=== PATIENT | female | born 1965 | race Caucasian/White ===

== ENCOUNTER 2017-10-14 07:14 | Day surgery (SDC) | payer MEDICARE ==
[~2017-10-14] VITALS: Ht 172.7 cm; Wt 134.7 kg
[~2017-10-14 07:14] MED LIST: ACET325 PO; ALBIPROI INH; ALBU90OI INH; ALBU90OI6; ALBU90OI6 INH; ALBU90OI61 INH; ALBUIS INH; AMLO10 PO; AMLO5 PO; AMOCLA500 PO; ANORO ELLIPTA1 EACH; ANORO ELLIPTA1 EACH INH; ASPI325 PO; ASPI81EC PO; AZIT250 PO; AZIT500 PO; BUDE10.22; CHOL10002 PO; CODGUAEL PO; CRUTCH3 USE; DIPATR PO; DOCU100 PO; DOXY100 PO; ERGO50000 PO; FAMO20 PO; FENO145; FENO145 PO; FENO67 PO; FLUSAL2505 INH; FLUT.05NI; FURO80 PO; Fenofibrate134 MG PO; Flonase 0.05% N16 GM; GABA300 PO; GLIM2 PO; GLIP2.5ER PO; GLIP5 PO; GUAI600T33 PO; HYDACE5 PO; HYDACE5325 PO; IBUP400 PO; INSDET100; INSDET100 SC; INSDET100 SQ; INSDET100 SUBQ; INSLI100I SC; INSR10I SUBQ; INSUASPI; INSUASPI SC; INSUASPI SUBQ; LEVEMIR FL100 UNIT/1 SC; LEVO750 PO; LISHYD1012 PO; LISI10 PO; LISI20 PO; LISI5 PO; LOVA20 PO; LOVA40 PO; MELO7.5 PO; METO10 PO; METO25 PO; METO25ER; METO25ER PO; METO50 PO; METOPROLOL PO; MIRT15 PO; MONT10T PO; Mevacor PO; NAPR375 PO; NEOCOLOTSU RIGHTEAR; NORT25; NORT25 PO; Naprosyn500 MG PO; Norco 5-325 Ta1 EACH PO; Novolog Fl100 UNIT/1 SC; Novolog100 UNIT/2; OMEG1CAP30 PO; OMEP20ER PO; ONDA4 PO; OXYACE5T PO; Omeprazole20 M1 PO; PIOG15 PO; PRED10 PO; PRED20 PO; PROCODE120 PO; PROM25 PO; Percocet 7.5-31 EACH PO; Perforomis20 MCG/2 M INH; Prednisone20 MG PO; RXCODGUASY PO; RXTRAM50 PO; Robaxin-750750 MG PO; SUCR1 PO; TEMA7.5 PO; TIOT18 INH; TRADJENTA5 MG PO; TRAM50 PO; Tricor PO; UNKNOWN ANTIBIOTIC PO; Ventolin Soln3 ML INH; Ventolin5 MG/1 ML; Zestril PO; Zithromax250 MG PO; Zofran Odt4 MG SL; [UNRECOGNIZED DRUG - OTHER]
[2017-10-25] MEDS ORDERED: [UNRECOGNIZED DRUG - CODE] PO (13:29)
[2017-10-25] MEDS ORDERED: Novolog Fl100 UNIT/1 INJ (15:08)
[2017-10-25] MEDS ORDERED: LOVA40 PO (15:15)
[2017-10-28] MEDS ORDERED: ATOR40TA PO (13:49)
[2017-10-28] MEDS ORDERED: GUAI600T33 PO (13:51)
[2017-10-28] MEDS ORDERED: ALBU2.5V5 NEB (13:51)
[2017-10-28] MEDS ORDERED: LEVFLO500 PO (13:52)
[2017-10-28] MEDS ORDERED: TRAM50 PO (13:53)
[2017-10-28] MEDS ORDERED: POTA20LUD PO (13:53)
== END 2017-10-14 22:57 | disposition home or self-care (01) ==
LOC: ORSCMMR 07:14 → ORD 10:30 → ORSCMMR 10:30
PROVIDERS: Internal Medicine Gastroenterology
PROC: 0DBM8ZX Excision of Descending Colon, Via Natural or Artificial Opening Endoscopic, Diagnostic (ICD-10-PCS; principal; 2017-10-14 08:30)
PROC: 0DBK8ZX Excision of Ascending Colon, Via Natural or Artificial Opening Endoscopic, Diagnostic (ICD-10-PCS; principal; 2017-10-14 08:30)
PROC: 0DBH8ZX Excision of Cecum, Via Natural or Artificial Opening Endoscopic, Diagnostic (ICD-10-PCS; principal; 2017-10-14 08:30)
PROC: 0DBN8ZX Excision of Sigmoid Colon, Via Natural or Artificial Opening Endoscopic, Diagnostic (ICD-10-PCS; principal; 2017-10-14 08:30)
DX: Z12.11 Encounter for screening for malignant neoplasm of colon (principal); Z86.010 Personal history of colon polyps; D12.0 Benign neoplasm of cecum; D12.2 Benign neoplasm of ascending colon; K63.5 Polyp of colon; K64.8 Other hemorrhoids; E11.9 Type 2 diabetes mellitus without complications; Z79.4 Long term (current) use of insulin; I10 Essential (primary) hypertension; E78.00 Pure hypercholesterolemia, unspecified; E66.01 Morbid (severe) obesity due to excess calories; Z68.42 Body mass index [BMI] 45.0-49.9, adult; Z79.899 Other long term (current) drug therapy; J44.9 Chronic obstructive pulmonary disease, unspecified
CPT/HCPCS: 82947; 88305; J2250; J3010; J7120

== ENCOUNTER 2017-10-17 07:31 | Emergency (ER) | payer MEDICARE ==
[~2017-10-17] VITALS: Ht 172.7 cm; Wt 133.8 kg
[2017-10-17 08:49] LABS: BASOPHILS ABSOLUTE AUTO 0.05 K/mm3 (0.00-0.23); BASOPHILS PERCENT AUTO 1 % (0-2); EOSINOPHILS ABSOLUTE AUTO 0.35 K/mm3 (0.00-0.68); EOSINOPHILS PERCENT AUTO 4 % (0-6); Hematocrit 46.8 % (33.0-51.0); Hemoglobin 13.7 g/dL (11.5-16.0); IMMATURE GRAN ABSOLUTE AUTO 0.04 K/mm3 (0.00-0.10); IMMATURE GRAN PERCENT AUTO 0 % (0-1); LYMPHOCYTES ABSOLUTE AUTO 1.95 K/mm3 (0.84-5.20); LYMPHOCYTES PERCENT AUTO 20 % (21-46); MONOCYTES ABSOLUTE AUTO 0.89 K/mm3 (0.16-1.47); MONOCYTES PERCENT AUTO 9 % (4-13); Mean Corpuscular HGB 24.9 pg (26.0-34.0); Mean Corpuscular HGB Conc 29.3 g/dL (31.5-36.5); Mean Corpuscular Volume 85 fL (80-100); Mean Platelet Volume 9.9 fL (9.1-12.4); NEUTROPHILS ABSOLUTE AUTO 6.46 K/mm3 (1.96-9.15); NEUTROPHILS PERCENT AUTO 66 % (41-73); Platelet Count 284 K/mm3 (150-400); RDW Coefficient Variation 16.9 % (11.7-14.2); RDW Standard Deviation 52.4 fL (35.1-46.3); White Blood Cell Count 9.74 K/mm3 (4.00-11.30)
[2017-10-17 09:05] LABS: Anion Gap 7 mmol/L (6-16); Blood Urea Nitrogen 18 mg/dL (8-24); Bun/Creatinine Ratio 20.3 (12.0-20.0); CO2, Blood 26 mmol/L (21-32); Chloride, Blood 108 mmol/L (98-108); Creatinine, Blood 0.89 mg/dL (0.40-1.00); Glomerular Filtration Rate >60 (60-); Glucose, Blood 113 mg/dL (70-99); Potassium, Blood 4.4 mmol/L (3.5-5.5); Sodium, Blood 141 mmol/L (136-145)
[2017-10-17] MEDS ORDERED: Norco 10-325 T1 EACH PO (10:55)
[2017-10-17] MEDS ORDERED: Prednisone20 MG PO (10:55)
[2017-10-17] MEDS ORDERED: AZIT500 PO (10:55)
[2017-10-25] MEDS ORDERED: [UNRECOGNIZED DRUG - CODE] PO (13:29)
[2017-10-25] MEDS ORDERED: Novolog Fl100 UNIT/1 INJ (15:08)
[2017-10-25] MEDS ORDERED: LOVA40 PO (15:15)
[2017-10-28] MEDS ORDERED: ATOR40TA PO (13:49)
[2017-10-28] MEDS ORDERED: ALBU2.5V5 NEB (13:51)
[2017-10-28] MEDS ORDERED: GUAI600T33 PO (13:51)
[2017-10-28] MEDS ORDERED: LEVFLO500 PO (13:52)
[2017-10-28] MEDS ORDERED: POTA20LUD PO (13:53)
[2017-10-28] MEDS ORDERED: TRAM50 PO (13:53)
== END 2017-10-17 11:31 | disposition home or self-care (01) ==
LOC: ER 07:31
PROVIDERS: Emergency Medicine
DX: J44.1 Chronic obstructive pulmonary disease with (acute) exacerbation (principal); J44.0 Chronic obstructive pulmonary disease with (acute) lower respiratory infection; J18.9 Pneumonia, unspecified organism; E11.9 Type 2 diabetes mellitus without complications; Z88.8 Allergy status to other drugs, medicaments and biological substances; Z88.6 Allergy status to analgesic agent; Z79.4 Long term (current) use of insulin; Z79.899 Other long term (current) drug therapy; Z87.891 Personal history of nicotine dependence
CPT/HCPCS: 36415; 71046; 80048; 85025; 93005; 93010; 94644; 96361; 96365; 96368; 96375; 99284; J0456; J0696; J2405; J2930; J7030; J7050

== ENCOUNTER 2018-01-08 23:18 | Emergency (ER) | payer MEDICARE, SELFPAY ==
[~2018-01-08] VITALS: Ht 172.7 cm; Wt 127.5 kg
[~2018-01-08 23:18] MED LIST changes: +ALBU2.5V5 NEB; +ATOR40TA PO; +LEVFLO500 PO; +Norco 10-325 T1 EACH PO; +Novolog Fl100 UNIT/1 INJ; +POTA20LUD PO; +[UNRECOGNIZED DRUG - CODE] PO
[2018-01-09] MEDS ORDERED: IBUP800 PO (04:09)
== END 2018-01-09 04:23 | disposition home or self-care (01) ==
LOC: ER 23:18
DX: S93.402A Sprain of unspecified ligament of left ankle, initial encounter (principal); E11.9 Type 2 diabetes mellitus without complications; J44.9 Chronic obstructive pulmonary disease, unspecified; Z88.8 Allergy status to other drugs, medicaments and biological substances; Z88.5 Allergy status to narcotic agent; Z79.899 Other long term (current) drug therapy; Z79.4 Long term (current) use of insulin; Z87.891 Personal history of nicotine dependence; X50.1XXA Overexertion from prolonged static or awkward postures, initial encounter
CPT/HCPCS: 73630; 99283

== ENCOUNTER 2018-05-21 09:36 | Inpatient (IN) | payer MEDICARE, SELFPAY ==
[~2018-05-21] VITALS: Ht 172.7 cm; Wt 135.2 kg
[~2018-05-21 09:36] MED LIST changes: +ACETAMIN-CODE12.5 ML PO; +FURO20 PO; +IBUP800 PO; -INSDET100; +PRED20; +ROBITUSSIN COU237 ML PO; +Tylenol W/Code120 ML PO
[2018-05-21 10:54] LABS: Alanine Aminotransfer (ALT/SGP 21 U/L (12-78); Albumin, Blood 3.1 g/dL (3.4-5.0); Albumin/Globulin Ratio 1.2 (0.8-1.8); Alk Phos 42 U/L (50-136); Anion Gap 11 mmol/L (6-16); Aspartate Aminotrans (AST/SGOT 14 U/L (12-37); Bilirubin, Total 0.6 mg/dL (0.1-1.0); Blood Urea Nitrogen 88 mg/dL (8-24); Bun/Creatinine Ratio 35.9 (12.0-20.0); CO2, Blood 29 mmol/L (21-32); Calcium, Blood 8.4 mg/dL (8.5-10.1); Chloride, Blood 96 mmol/L (98-108); Creatinine, Blood 2.45 mg/dL (0.40-1.00); Globulin, Blood 2.6 g/dL (2.2-4.0); Glomerular Filtration Rate 22 (60-); Glucose, Blood 62 mg/dL (70-99); Potassium, Blood 4.9 mmol/L (3.5-5.5); Sodium, Blood 136 mmol/L (136-145); Total Protein, Blood 5.7 g/dL (6.4-8.2); Troponin I <0.015 ng/mL (0.000-0.040)
[2018-05-21 11:07] LABS: BASOPHILS ABSOLUTE AUTO 0.05 K/mm3 (0.00-0.23); BASOPHILS PERCENT AUTO 0 % (0-2); EOSINOPHILS ABSOLUTE AUTO 0.16 K/mm3 (0.00-0.68); EOSINOPHILS PERCENT AUTO 1 % (0-6); Hematocrit 36.6 % (33.0-51.0); Hemoglobin 11.1 g/dL (11.5-16.0); IMMATURE GRAN ABSOLUTE AUTO 0.46 K/mm3 (0.00-0.10); IMMATURE GRAN PERCENT AUTO 2 % (0-1); LYMPHOCYTES ABSOLUTE AUTO 3.14 K/mm3 (0.84-5.20); LYMPHOCYTES PERCENT AUTO 15 % (21-46); MONOCYTES ABSOLUTE AUTO 1.81 K/mm3 (0.16-1.47); MONOCYTES PERCENT AUTO 9 % (4-13); Mean Corpuscular HGB Conc 30.3 g/dL (31.5-36.5); Mean Corpuscular Volume 92 fL (80-100); NEUTROPHILS ABSOLUTE AUTO 15.14 K/mm3 (1.96-9.15); NEUTROPHILS PERCENT AUTO 73 % (41-73); Platelet Count 259 K/mm3 (150-400); RDW Coefficient Variation 15.1 % (11.7-14.2); RDW Standard Deviation 51.5 fL (35.1-46.3); Red Blood Cell Count 3.97 M/mm3 (3.80-5.20); White Blood Cell Count 20.76 K/mm3 (4.00-11.30)
[2018-05-21 13:04] LABS: PO2 Arterial 70.1 mmHg (80-100)
[2018-05-21 13:05] LABS: PCO2 Arterial 72.1 mmHg (35-45); pH Blood Arterial 7.29 (7.35-7.45)
[2018-05-21 20:17] LABS: PCO2 Arterial 65.7 mmHg (35-45); PO2 Arterial 74.3 mmHg (80-100); pH Blood Arterial 7.35 (7.35-7.45)
[2018-05-22 01:40] LABS: Source, Urine Clean Catch
[2018-05-22 02:04] LABS: Bilirubin, Urine Neg (Neg); Blood, Urine Neg (Neg); Glucose Qualitative, Urine Neg (Neg); Ketones, Urine Neg (Neg); Leukocyte Esterase, Urine Neg (Neg); Nitrite, Urine Neg (Neg); Protein, Urine Neg (Neg); Specific Gravity, Urine 1.015 (1.003-1.022); Urobilinogen, Urine NORM (Normal)
[2018-05-22 02:11] LABS: Appearance, Urine Clear (Clear); Color, Urine Yellow (P-Yellow)
[2018-05-22 04:30] LABS: BASOPHILS ABSOLUTE AUTO 0.04 K/mm3 (0.00-0.23); BASOPHILS PERCENT AUTO 0 % (0-2); EOSINOPHILS ABSOLUTE AUTO 0.21 K/mm3 (0.00-0.68); EOSINOPHILS PERCENT AUTO 2 % (0-6); Hematocrit 36.2 % (33.0-51.0); IMMATURE GRAN ABSOLUTE AUTO 0.34 K/mm3 (0.00-0.10); IMMATURE GRAN PERCENT AUTO 2 % (0-1); LYMPHOCYTES ABSOLUTE AUTO 3.07 K/mm3 (0.84-5.20); LYMPHOCYTES PERCENT AUTO 21 % (21-46); MONOCYTES ABSOLUTE AUTO 1.14 K/mm3 (0.16-1.47); MONOCYTES PERCENT AUTO 8 % (4-13); Mean Corpuscular HGB 27.8 pg (26.0-34.0); Mean Corpuscular HGB Conc 30.4 g/dL (31.5-36.5); Mean Corpuscular Volume 91 fL (80-100); NEUTROPHILS ABSOLUTE AUTO 9.61 K/mm3 (1.96-9.15); NEUTROPHILS PERCENT AUTO 67 % (41-73); Platelet Count 247 K/mm3 (150-400); RDW Coefficient Variation 15.2 % (11.7-14.2); RDW Standard Deviation 51.6 fL (35.1-46.3); Red Blood Cell Count 3.96 M/mm3 (3.80-5.20); White Blood Cell Count 14.41 K/mm3 (4.00-11.30)
[2018-05-22 04:55] LABS: Alanine Aminotransfer (ALT/SGP 18 U/L (12-78); Albumin, Blood 3.1 g/dL (3.4-5.0); Albumin/Globulin Ratio 1.1 (0.8-1.8); Alk Phos 36 U/L (50-136); Anion Gap 3 mmol/L (6-16); Aspartate Aminotrans (AST/SGOT 21 U/L (12-37); Bilirubin, Total 0.5 mg/dL (0.1-1.0); Blood Urea Nitrogen 82 mg/dL (8-24); Bun/Creatinine Ratio 37.8 (12.0-20.0); CO2, Blood 34 mmol/L (21-32); Calcium, Blood 8.2 mg/dL (8.5-10.1); Chloride, Blood 96 mmol/L (98-108); Creatinine, Blood 2.17 mg/dL (0.40-1.00); Globulin, Blood 2.9 g/dL (2.2-4.0); Glomerular Filtration Rate 25 (60-); Glucose, Blood 95 mg/dL (70-99); Potassium, Blood 5.6 mmol/L (3.5-5.5); Sodium, Blood 133 mmol/L (136-145); Troponin I <0.015 ng/mL (0.000-0.040)
[2018-05-22 11:52] LABS: C-REACTIVE PROTEIN, EXT RANGE 2.31 mg/dL (0.000-0.300)
[2018-05-22 12:03] LABS: Thyroid Stimulating Hormone 0.746 uIU/mL (0.360-4.800)
[2018-05-22 22:55] LABS: U Amphetamine Screen Not Detected; U Barbituate Screen Not Detected; U Benzodiazapine Screen Not Detected; U Buprenorphine Screen Not Detected; U Cannabinoids Screen Not Detected; U Cocaine Screen Not Detected; U Methadone Screen Not Detected; U Methamphetamine Screen Not Detected; U Opiates Screen DETECTED; U Oxycodone Screen Not Detected; U Phencyclidine Screen Not Detected; U Propoxyphene Screen Not Detected
[2018-05-23 04:38] LABS: BASOPHILS ABSOLUTE AUTO 0.02 K/mm3 (0.00-0.23); BASOPHILS PERCENT AUTO 0 % (0-2); EOSINOPHILS ABSOLUTE AUTO 0.24 K/mm3 (0.00-0.68); EOSINOPHILS PERCENT AUTO 2 % (0-6); Hematocrit 35.4 % (33.0-51.0); Hemoglobin 10.6 g/dL (11.5-16.0); IMMATURE GRAN ABSOLUTE AUTO 0.27 K/mm3 (0.00-0.10); IMMATURE GRAN PERCENT AUTO 3 % (0-1); LYMPHOCYTES ABSOLUTE AUTO 2.22 K/mm3 (0.84-5.20); LYMPHOCYTES PERCENT AUTO 21 % (21-46); MONOCYTES PERCENT AUTO 8 % (4-13); Mean Corpuscular HGB 27.5 pg (26.0-34.0); Mean Corpuscular HGB Conc 29.9 g/dL (31.5-36.5); Mean Corpuscular Volume 92 fL (80-100); Mean Platelet Volume 9.8 fL (9.1-12.4); NEUTROPHILS ABSOLUTE AUTO 7.05 K/mm3 (1.96-9.15); NEUTROPHILS PERCENT AUTO 67 % (41-73); Platelet Count 253 K/mm3 (150-400); RDW Coefficient Variation 14.9 % (11.7-14.2); RDW Standard Deviation 50.4 fL (35.1-46.3); Red Blood Cell Count 3.86 M/mm3 (3.80-5.20)
[2018-05-23 05:10] LABS: Albumin, Blood 3.1 g/dL (3.4-5.0); Albumin/Globulin Ratio 1.1 (0.8-1.8); Bilirubin, Total 0.4 mg/dL (0.1-1.0); Bun/Creatinine Ratio 39.4 (12.0-20.0); Calcium, Blood 8.8 mg/dL (8.5-10.1); Creatinine, Blood 1.55 mg/dL (0.40-1.00); Globulin, Blood 2.9 g/dL (2.2-4.0); Potassium, Blood 4.7 mmol/L (3.5-5.5)
[2018-05-24 06:30] LABS: Albumin, Blood 3.5 g/dL (3.4-5.0); Albumin/Globulin Ratio 1.2 (0.8-1.8); Bilirubin, Total 0.4 mg/dL (0.1-1.0); Bun/Creatinine Ratio 32.1 (12.0-20.0); Calcium, Blood 9.1 mg/dL (8.5-10.1); Creatinine, Blood 1.31 mg/dL (0.40-1.00); Globulin, Blood 2.8 g/dL (2.2-4.0); Potassium, Blood 5.3 mmol/L (3.5-5.5); Total Protein, Blood 6.3 g/dL (6.4-8.2)
[2018-05-24 06:41] LABS: BASOPHILS ABSOLUTE AUTO 0.02 K/mm3 (0.00-0.23); BASOPHILS PERCENT AUTO 0 % (0-2); EOSINOPHILS ABSOLUTE AUTO 0.11 K/mm3 (0.00-0.68); EOSINOPHILS PERCENT AUTO 1 % (0-6); Hematocrit 35.2 % (33.0-51.0); Hemoglobin 10.6 g/dL (11.5-16.0); IMMATURE GRAN ABSOLUTE AUTO 0.18 K/mm3 (0.00-0.10); IMMATURE GRAN PERCENT AUTO 1 % (0-1); LYMPHOCYTES ABSOLUTE AUTO 1.89 K/mm3 (0.84-5.20); LYMPHOCYTES PERCENT AUTO 15 % (21-46); MONOCYTES ABSOLUTE AUTO 0.68 K/mm3 (0.16-1.47); MONOCYTES PERCENT AUTO 5 % (4-13); Mean Corpuscular HGB 27.7 pg (26.0-34.0); Mean Corpuscular HGB Conc 30.1 g/dL (31.5-36.5); Mean Corpuscular Volume 92 fL (80-100); Mean Platelet Volume 9.4 fL (9.1-12.4); NEUTROPHILS PERCENT AUTO 77 % (41-73); Platelet Count 240 K/mm3 (150-400); RDW Coefficient Variation 14.2 % (11.7-14.2); RDW Standard Deviation 48.2 fL (35.1-46.3); Red Blood Cell Count 3.82 M/mm3 (3.80-5.20); White Blood Cell Count 12.68 K/mm3 (4.00-11.30)
[2018-05-24 07:09] LABS: COMPLEMENT C4, SERUM 21 mg/dL (14-44)
[2018-05-24 10:39] LABS: Antinuclear Antibody Screen Negative (Negative)
[2018-05-24 14:44] LABS: Rheumatoid Factor, Serum Negative (Negative)
[2018-05-26 12:09] LABS: ANA DIRECT Negative (Negative); ANTIMYELOPEROXIDASE (MPO) ABS <9.0 U/mL (0.0-9.0); ANTIPROTEINASE 3 (PR-3) ABS <3.5 U/mL (0.0-3.5); ATYPICAL PANCA <1:20 titer ([, Neg:<1:20]); CYTOPLASMIC (C-ANCA) <1:20 titer ([, Neg:<1:20]); PERINUCLEAR (P-ANCA) <1:20 titer ([, Neg:<1:20])
[2018-05-26 16:08] LABS: COMPLEMENT C3, SERUM 148 mg/dL (82-167)
== END 2018-05-24 12:24 | disposition home or self-care (01) | DRG 189 ==
LOC: ER 09:36 → PCU 12:17
PROVIDERS: Emergency Medicine; Internal Medicine
DX: J96.01 Acute respiratory failure with hypoxia (principal); N17.0 Acute kidney failure with tubular necrosis; I50.30 Unspecified diastolic (congestive) heart failure; I42.1 Obstructive hypertrophic cardiomyopathy; J44.1 Chronic obstructive pulmonary disease with (acute) exacerbation; I13.0 Hypertensive heart and chronic kidney disease with heart failure and stage 1 through stage 4 chronic kidney disease, or unspecified chronic kidney disease; Z99.81 Dependence on supplemental oxygen; Z87.891 Personal history of nicotine dependence; J44.9 Chronic obstructive pulmonary disease, unspecified; E78.5 Hyperlipidemia, unspecified; F32.9 Major depressive disorder, single episode, unspecified; Z79.4 Long term (current) use of insulin; J98.4 Other disorders of lung; N18.3 Chronic kidney disease, stage 3 (moderate); E11.22 Type 2 diabetes mellitus with diabetic chronic kidney disease
CPT/HCPCS: 36415; 36600; 71045; 78582; 80053; 81003; 82728; 82803; 82947; 83036; 83520; 83540; 83550; 83605; 83880; 84443; 84484; 85025; 85379; 85651; 86038; 86140; 86160; 86225; 86235; 86256; 86430; 93005; 93010; 93970; 94640; 94760; 94762; 96365; 96367; 96375; 99285-25; A9540; A9558; C1751; J1644; J1956; J2405; J2543; J2930; J3010; J3370; J7030; P9041

== ENCOUNTER 2018-07-19 18:50 | Emergency (ER) | payer MEDICARE, OTHER ==
[~2018-07-19] VITALS: Ht 172.7 cm; Wt 133.4 kg
[2018-07-19 20:04] LABS: BASOPHILS ABSOLUTE AUTO 0.06 K/mm3 (0.00-0.23); BASOPHILS PERCENT AUTO 1 % (0-2); EOSINOPHILS ABSOLUTE AUTO 0.43 K/mm3 (0.00-0.68); EOSINOPHILS PERCENT AUTO 4 % (0-6); Hematocrit 33.3 % (33.0-51.0); Hemoglobin 10.6 g/dL (11.5-16.0); IMMATURE GRAN ABSOLUTE AUTO 0.08 K/mm3 (0.00-0.10); IMMATURE GRAN PERCENT AUTO 1 % (0-1); LYMPHOCYTES ABSOLUTE AUTO 2.71 K/mm3 (0.84-5.20); LYMPHOCYTES PERCENT AUTO 24 % (21-46); MONOCYTES ABSOLUTE AUTO 0.81 K/mm3 (0.16-1.47); MONOCYTES PERCENT AUTO 7 % (4-13); Mean Corpuscular HGB 28.6 pg (26.0-34.0); Mean Corpuscular HGB Conc 31.8 g/dL (31.5-36.5); Mean Corpuscular Volume 90 fL (80-100); Mean Platelet Volume 10.2 fL (9.1-12.4); NEUTROPHILS ABSOLUTE AUTO 7.27 K/mm3 (1.96-9.15); NEUTROPHILS PERCENT AUTO 64 % (41-73); Platelet Count 373 K/mm3 (150-400); RDW Coefficient Variation 14.8 % (11.7-14.2); RDW Standard Deviation 48.9 fL (35.1-46.3); White Blood Cell Count 11.36 K/mm3 (4.00-11.30)
[2018-07-19 20:20] LABS: Alanine Aminotransfer (ALT/SGP 33 U/L (12-78); Albumin/Globulin Ratio 1.3 (0.8-1.8); Alk Phos 78 U/L (50-136); Anion Gap 7 mmol/L (6-16); Aspartate Aminotrans (AST/SGOT 22 U/L (12-37); Bilirubin, Total 0.2 mg/dL (0.1-1.0); Blood Urea Nitrogen 56 mg/dL (8-24); Bun/Creatinine Ratio 29.3 (12.0-20.0); CO2, Blood 29 mmol/L (21-32); Calcium, Blood 9.3 mg/dL (8.5-10.1); Chloride, Blood 102 mmol/L (98-108); Creatinine, Blood 1.91 mg/dL (0.40-1.00); Globulin, Blood 3.1 g/dL (2.2-4.0); Glomerular Filtration Rate 29 (60-); Glucose, Blood 116 mg/dL (70-99); Sodium, Blood 138 mmol/L (136-145); Total Protein, Blood 7.1 g/dL (6.4-8.2); Troponin I <0.015 ng/mL (0.000-0.040)
== END 2018-07-19 21:45 | disposition home or self-care (01) ==
LOC: ER 18:50
PROVIDERS: Physician Assistant
DX: J18.1 Lobar pneumonia, unspecified organism (principal); I13.0 Hypertensive heart and chronic kidney disease with heart failure and stage 1 through stage 4 chronic kidney disease, or unspecified chronic kidney disease; E11.22 Type 2 diabetes mellitus with diabetic chronic kidney disease; N18.9 Chronic kidney disease, unspecified; I50.30 Unspecified diastolic (congestive) heart failure; J44.9 Chronic obstructive pulmonary disease, unspecified; E78.5 Hyperlipidemia, unspecified; E66.9 Obesity, unspecified; Z87.891 Personal history of nicotine dependence
CPT/HCPCS: 36415; 71046; 80053; 84484; 85025; 93005; 93010; 96361; 96374; 99285-25; J3010; J7030

== ENCOUNTER 2018-07-25 17:15 | Emergency (ER) | payer MEDICARE, OTHER ==
[~2018-07-25] VITALS: Ht 172.7 cm; Wt 135.2 kg
[2018-07-25 18:14] LABS: BASOPHILS ABSOLUTE AUTO 0.05 K/mm3 (0.00-0.23); BASOPHILS PERCENT AUTO 1 % (0-2); EOSINOPHILS ABSOLUTE AUTO 0.28 K/mm3 (0.00-0.68); EOSINOPHILS PERCENT AUTO 3 % (0-6); Hematocrit 31.9 % (33.0-51.0); Hemoglobin 9.8 g/dL (11.5-16.0); IMMATURE GRAN ABSOLUTE AUTO 0.11 K/mm3 (0.00-0.10); IMMATURE GRAN PERCENT AUTO 1 % (0-1); LYMPHOCYTES ABSOLUTE AUTO 2.09 K/mm3 (0.84-5.20); LYMPHOCYTES PERCENT AUTO 21 % (21-46); MONOCYTES ABSOLUTE AUTO 0.73 K/mm3 (0.16-1.47); MONOCYTES PERCENT AUTO 7 % (4-13); Mean Corpuscular HGB 27.6 pg (26.0-34.0); Mean Corpuscular HGB Conc 30.7 g/dL (31.5-36.5); Mean Corpuscular Volume 90 fL (80-100); Mean Platelet Volume 10.1 fL (9.1-12.4); NEUTROPHILS ABSOLUTE AUTO 6.71 K/mm3 (1.96-9.15); NEUTROPHILS PERCENT AUTO 67 % (41-73); Platelet Count 299 K/mm3 (150-400); RDW Coefficient Variation 14.9 % (11.7-14.2); RDW Standard Deviation 49.3 fL (35.1-46.3); Red Blood Cell Count 3.55 M/mm3 (3.80-5.20); White Blood Cell Count 9.97 K/mm3 (4.00-11.30)
[2018-07-25 18:33] LABS: Alanine Aminotransfer (ALT/SGP 25 U/L (12-78); Albumin, Blood 3.7 g/dL (3.4-5.0); Albumin/Globulin Ratio 1.2 (0.8-1.8); Alk Phos 78 U/L (50-136); Anion Gap 8 mmol/L (6-16); Aspartate Aminotrans (AST/SGOT 21 U/L (12-37); Bilirubin, Total 0.2 mg/dL (0.1-1.0); Blood Urea Nitrogen 26 mg/dL (8-24); Bun/Creatinine Ratio 16.7 (12.0-20.0); CO2, Blood 26 mmol/L (21-32); Calcium, Blood 9.1 mg/dL (8.5-10.1); Chloride, Blood 107 mmol/L (98-108); Creatinine, Blood 1.56 mg/dL (0.40-1.00); Glomerular Filtration Rate 37 (60-); Glucose, Blood 153 mg/dL (70-99); Potassium, Blood 4.4 mmol/L (3.5-5.5); Sodium, Blood 141 mmol/L (136-145); Total Protein, Blood 6.7 g/dL (6.4-8.2)
[2018-07-25 18:56] LABS: Troponin I <0.015 ng/mL (0.000-0.040)
[2018-07-25] MEDS ORDERED: NAPR550 PO (19:15)
== END 2018-07-25 19:32 | disposition home or self-care (01) ==
LOC: ER 17:15
PROVIDERS: Physician Assistant
DX: R09.1 Pleurisy (principal); I12.9 Hypertensive chronic kidney disease with stage 1 through stage 4 chronic kidney disease, or unspecified chronic kidney disease; E11.22 Type 2 diabetes mellitus with diabetic chronic kidney disease; N18.9 Chronic kidney disease, unspecified; J44.9 Chronic obstructive pulmonary disease, unspecified; E66.9 Obesity, unspecified; E78.5 Hyperlipidemia, unspecified; Z79.4 Long term (current) use of insulin; Z79.899 Other long term (current) drug therapy; Z87.891 Personal history of nicotine dependence
CPT/HCPCS: 36415; 71046; 80053; 84484; 85025; 85379; 93005; 93010; 96374; 99285-25; J1170

== ENCOUNTER 2018-12-09 10:48 | Emergency (ER) | payer MEDICARE ==
[~2018-12-09] VITALS: Ht 172.7 cm; Wt 137.0 kg
[~2018-12-09 10:48] MED LIST changes: +NAPR550 PO
[2018-12-09 11:45] LABS: BASOPHILS ABSOLUTE AUTO 0.04 K/mm3 (0.00-0.23); BASOPHILS PERCENT AUTO 1 % (0-2); EOSINOPHILS ABSOLUTE AUTO 0.27 K/mm3 (0.00-0.68); EOSINOPHILS PERCENT AUTO 4 % (0-6); Hematocrit 33.1 % (33.0-51.0); Hemoglobin 9.9 g/dL (11.5-16.0); IMMATURE GRAN ABSOLUTE AUTO 0.07 K/mm3 (0.00-0.10); IMMATURE GRAN PERCENT AUTO 1 % (0-1); LYMPHOCYTES PERCENT AUTO 19 % (21-46); MONOCYTES ABSOLUTE AUTO 0.77 K/mm3 (0.16-1.47); MONOCYTES PERCENT AUTO 12 % (4-13); Mean Corpuscular HGB 26.8 pg (26.0-34.0); Mean Corpuscular HGB Conc 29.9 g/dL (31.5-36.5); Mean Corpuscular Volume 90 fL (80-100); Mean Platelet Volume 10.3 fL (9.1-12.4); NEUTROPHILS ABSOLUTE AUTO 4.05 K/mm3 (1.96-9.15); NEUTROPHILS PERCENT AUTO 63 % (41-73); Platelet Count 298 K/mm3 (150-400); RDW Coefficient Variation 15.3 % (11.7-14.2); RDW Standard Deviation 50.4 fL (35.1-46.3)
[2018-12-09 12:14] LABS: Alanine Aminotransfer (ALT/SGP 41 U/L (12-78); Albumin, Blood 3.8 g/dL (3.4-5.0); Albumin/Globulin Ratio 1.2 (0.8-1.8); Alk Phos 87 U/L (50-136); Anion Gap 6 mmol/L (6-16); Aspartate Aminotrans (AST/SGOT 25 U/L (12-37); Bilirubin, Total 0.5 mg/dL (0.1-1.0); Blood Urea Nitrogen 47 mg/dL (8-24); Bun/Creatinine Ratio 28.1 (12.0-20.0); CO2, Blood 26 mmol/L (21-32); Calcium, Blood 9.2 mg/dL (8.5-10.1); Chloride, Blood 106 mmol/L (98-108); Creatinine, Blood 1.67 mg/dL (0.40-1.00); Globulin, Blood 3.3 g/dL (2.2-4.0); Glomerular Filtration Rate 34 (60-); Glucose, Blood 163 mg/dL (70-99); Potassium, Blood 5.1 mmol/L (3.5-5.5); Sodium, Blood 138 mmol/L (136-145); Total Protein, Blood 7.1 g/dL (6.4-8.2); Troponin I <0.015 ng/mL (0.000-0.040)
[2018-12-09] MEDS ORDERED: Prednisone20 MG PO (15:33)
[2018-12-09] MEDS ORDERED: Zithromax250 MG PO (15:33)
[2018-12-09] MEDS ORDERED: HYDR1TAB94 PO (15:33)
== END 2018-12-09 15:46 | disposition home or self-care (01) ==
LOC: ER 10:48
PROVIDERS: Physician Assistant
DX: J44.1 Chronic obstructive pulmonary disease with (acute) exacerbation (principal); M54.9 Dorsalgia, unspecified; I13.0 Hypertensive heart and chronic kidney disease with heart failure and stage 1 through stage 4 chronic kidney disease, or unspecified chronic kidney disease; E11.22 Type 2 diabetes mellitus with diabetic chronic kidney disease; I50.30 Unspecified diastolic (congestive) heart failure; N18.9 Chronic kidney disease, unspecified; E78.5 Hyperlipidemia, unspecified; Z88.6 Allergy status to analgesic agent; Z88.8 Allergy status to other drugs, medicaments and biological substances; Z79.899 Other long term (current) drug therapy; Z79.4 Long term (current) use of insulin
CPT/HCPCS: 36415; 71046; 80053; 83880; 84484; 85025; 93005; 93010; 94644; 99285-25; J7512

== ENCOUNTER 2019-03-30 06:49 | Day surgery (SDC) | payer MEDICARE, OTHER ==
[~2019-03-30] VITALS: Ht 172.7 cm; Wt 138.7 kg
[~2019-03-30 06:49] MED LIST changes: +FERSU300 PO; +FURO40 PO; +HYDR1TAB94 PO; +METO5 PO; +Vitamin D2000 UNIT PO
[2019-03-30] MEDS ORDERED: ANORO ELLIPTA1 EACH (08:08)
== END 2019-03-30 09:30 | disposition home or self-care (01) ==
LOC: ORSCSDS 06:49
PROVIDERS: Ophthalmology
PROC: 08RK3JZ Replacement of Left Lens with Synthetic Substitute, Percutaneous Approach (ICD-10-PCS; principal; 2019-03-30 08:30)
DX: H25.12 Age-related nuclear cataract, left eye (principal); I10 Essential (primary) hypertension; E11.9 Type 2 diabetes mellitus without complications; E03.9 Hypothyroidism, unspecified; E66.01 Morbid (severe) obesity due to excess calories; Z68.42 Body mass index [BMI] 45.0-49.9, adult; J44.9 Chronic obstructive pulmonary disease, unspecified; Z99.81 Dependence on supplemental oxygen; Z79.899 Other long term (current) drug therapy
CPT/HCPCS: 82947; J2001; J2250; J3010; J3301; J7030; V2632

== ENCOUNTER 2021-01-25 18:50 | Emergency (ER) | payer MEDICARE ==
[~2021-01-25] VITALS: Ht 172.7 cm; Wt 141.1 kg
[~2021-01-25 18:50] MED LIST changes: +LIDO700A20 TOP
[2021-01-25] MEDS ORDERED: Voltaren100 GM TOP (20:02)
== END 2021-01-25 20:23 | disposition home or self-care (01) ==
LOC: ER 18:50
DX: S96.912A Strain of unspecified muscle and tendon at ankle and foot level, left foot, initial encounter (principal); J44.9 Chronic obstructive pulmonary disease, unspecified; E11.40 Type 2 diabetes mellitus with diabetic neuropathy, unspecified; E03.9 Hypothyroidism, unspecified; I10 Essential (primary) hypertension; Z88.6 Allergy status to analgesic agent; Z88.8 Allergy status to other drugs, medicaments and biological substances; Z88.5 Allergy status to narcotic agent; Z87.891 Personal history of nicotine dependence; X58.XXXA Exposure to other specified factors, initial encounter
CPT/HCPCS: 73630; 99283-25; A9270

== ENCOUNTER 2021-02-25 22:36 | Emergency (ER) | payer MEDICARE ==
[~2021-02-25] VITALS: Ht 172.7 cm; Wt 140.2 kg
[~2021-02-25 22:36] MED LIST changes: -FURO40 PO; -METO5 PO; -Novolog100 UNIT/2; +Voltaren100 GM TOP
[2021-02-26] MEDS ORDERED: Novolog100 UNIT/2 (18:05)
[2021-02-26] MEDS ORDERED: FURO80 PO (18:06)
[2021-02-26] MEDS ORDERED: LOVA40 PO (18:06)
[2021-02-26] MEDS ORDERED: FURO40 PO (18:07)
[2021-02-26] MEDS ORDERED: GABA300 PO ×2 (18:08)
[2021-02-26] MEDS ORDERED: MONT10T PO (18:09)
[2021-02-26] MEDS ORDERED: LEVEMIR FL100 UNIT/2 SC (18:10)
[2021-02-26] MEDS ORDERED: TRELEGY ELLIPT1 EAC1 INH (18:12)
[2021-02-26] MEDS ORDERED: AMLO5 PO (18:12)
[2021-02-26] MEDS ORDERED: LISI20 PO (18:12)
[2021-02-26] MEDS ORDERED: GLIP5 PO ×2 (18:13→18:14)
[2021-02-26] MEDS ORDERED: Fenofibrate134 MG PO (18:13)
[2021-02-26] MEDS ORDERED: METO25 PO (18:14)
[2021-02-26] MEDS ORDERED: Omeprazole20 M1 PO (18:14)
[2021-02-26] MEDS ORDERED: TRADJENTA5 MG PO (18:14)
[2021-02-26] MEDS ORDERED: METO5 PO (18:15)
[2021-02-26] MEDS ORDERED: ALBU2.5V5 NEB (18:16)
[2021-02-26] MEDS ORDERED: ALBU90OI61 INH (18:16)
== END 2021-02-26 01:20 | disposition left against medical advice (07) ==
LOC: ER 22:36
DX: U07.1 COVID-19 (principal); J12.82 Pneumonia due to coronavirus disease 2019; J44.9 Chronic obstructive pulmonary disease, unspecified; Z99.81 Dependence on supplemental oxygen; Z79.899 Other long term (current) drug therapy; Z53.20 Procedure and treatment not carried out because of patient's decision for unspecified reasons
CPT/HCPCS: 99282

== ENCOUNTER 2021-02-26 17:05 | Inpatient (IN) | payer MEDICARE ==
[~2021-02-26] VITALS: Ht 182.9 cm; Wt 141.4 kg
[2021-02-26 17:50] LABS: Base Excess Venous -1.6 mmol/L; Bicarbonate Venous 22.8 mmol/L (24.0-30.0); PCO2 Venous 49.3 mmHg (38-42); PO2 Venous 151 mmHg (38-42); pH Blood Venous 7.31 (7.34-7.37)
[2021-02-26 18:05] LABS: BASOPHILS ABSOLUTE AUTO 0.01 K/mm3 (0.00-0.23); BASOPHILS PERCENT AUTO 0 % (0-2); EOSINOPHILS PERCENT AUTO 0 % (0-6); Hematocrit 32.6 % (33.0-51.0); Hemoglobin 9.8 g/dL (11.5-16.0); IMMATURE GRAN ABSOLUTE AUTO 0.06 K/mm3 (0.00-0.10); IMMATURE GRAN PERCENT AUTO 1 % (0-1); LYMPHOCYTES ABSOLUTE AUTO 0.79 K/mm3 (0.84-5.20); LYMPHOCYTES PERCENT AUTO 13 % (21-46); MONOCYTES ABSOLUTE AUTO 0.57 K/mm3 (0.16-1.47); MONOCYTES PERCENT AUTO 10 % (4-13); Mean Corpuscular HGB 26.3 pg (26.0-34.0); Mean Corpuscular HGB Conc 30.1 g/dL (31.5-36.5); Mean Corpuscular Volume 87 fL (80-100); NEUTROPHILS ABSOLUTE AUTO 4.47 K/mm3 (1.96-9.15); NEUTROPHILS PERCENT AUTO 76 % (41-73); Platelet Count 233 K/mm3 (150-400); RDW Coefficient Variation 16.7 % (11.7-14.2); RDW Standard Deviation 53.1 fL (35.1-46.3); Red Blood Cell Count 3.73 M/mm3 (3.80-5.20)
[2021-02-26] MEDS ORDERED: Novolog100 UNIT/2 (18:05)
[2021-02-26] MEDS ORDERED: LOVA40 PO (18:06)
[2021-02-26] MEDS ORDERED: FURO80 PO (18:06)
[2021-02-26] MEDS ORDERED: FURO40 PO (18:07)
[2021-02-26] MEDS ORDERED: GABA300 PO ×2 (18:08)
[2021-02-26] MEDS ORDERED: MONT10T PO (18:09)
[2021-02-26] MEDS ORDERED: LEVEMIR FL100 UNIT/2 SC (18:10)
[2021-02-26] MEDS ORDERED: TRELEGY ELLIPT1 EAC1 INH (18:12)
[2021-02-26] MEDS ORDERED: LISI20 PO (18:12)
[2021-02-26] MEDS ORDERED: AMLO5 PO (18:12)
[2021-02-26] MEDS ORDERED: Fenofibrate134 MG PO (18:13)
[2021-02-26] MEDS ORDERED: GLIP5 PO ×2 (18:13→18:14)
[2021-02-26] MEDS ORDERED: TRADJENTA5 MG PO (18:14)
[2021-02-26] MEDS ORDERED: Omeprazole20 M1 PO (18:14)
[2021-02-26] MEDS ORDERED: METO25 PO (18:14)
[2021-02-26] MEDS ORDERED: METO5 PO (18:15)
[2021-02-26] MEDS ORDERED: ALBU90OI61 INH (18:16)
[2021-02-26] MEDS ORDERED: ALBU2.5V5 NEB (18:16)
[2021-02-26 18:28] LABS: Albumin, Blood 3.3 g/dL (3.4-5.0); Albumin/Globulin Ratio 0.8 (0.8-1.8); Bilirubin, Total 0.5 mg/dL (0.1-1.0); Bun/Creatinine Ratio 28.1 (12.0-20.0); Calcium, Blood 8.8 mg/dL (8.5-10.1); Creatinine, Blood 3.13 mg/dL (0.40-1.00); Globulin, Blood 3.9 g/dL (2.2-4.0); Magnesium, Blood 1.8 mg/dL (1.6-2.4); Potassium, Blood 5.1 mmol/L (3.5-5.5); Total Protein, Blood 7.2 g/dL (6.4-8.2)
[2021-02-27 06:56] LABS: BASOPHILS ABSOLUTE AUTO 0.01 K/mm3 (0.00-0.23); BASOPHILS PERCENT AUTO 0 % (0-2); EOSINOPHILS PERCENT AUTO 0 % (0-6); Hematocrit 32.9 % (33.0-51.0); Hemoglobin 9.9 g/dL (11.5-16.0); IMMATURE GRAN ABSOLUTE AUTO 0.07 K/mm3 (0.00-0.10); IMMATURE GRAN PERCENT AUTO 1 % (0-1); LYMPHOCYTES ABSOLUTE AUTO 0.61 K/mm3 (0.84-5.20); LYMPHOCYTES PERCENT AUTO 10 % (21-46); MONOCYTES ABSOLUTE AUTO 0.65 K/mm3 (0.16-1.47); MONOCYTES PERCENT AUTO 11 % (4-13); Mean Corpuscular HGB 26.5 pg (26.0-34.0); Mean Corpuscular HGB Conc 30.1 g/dL (31.5-36.5); Mean Corpuscular Volume 88 fL (80-100); NEUTROPHILS ABSOLUTE AUTO 4.76 K/mm3 (1.96-9.15); NEUTROPHILS PERCENT AUTO 78 % (41-73); Platelet Count 247 K/mm3 (150-400); RDW Coefficient Variation 16.8 % (11.7-14.2); RDW Standard Deviation 54.5 fL (35.1-46.3); Red Blood Cell Count 3.74 M/mm3 (3.80-5.20)
[2021-02-27 07:16] LABS: Albumin/Globulin Ratio 0.7 (0.8-1.8); Bilirubin, Total 0.5 mg/dL (0.1-1.0); Bun/Creatinine Ratio 33.5 (12.0-20.0); Calcium, Blood 9.1 mg/dL (8.5-10.1); Creatinine, Blood 2.69 mg/dL (0.40-1.00); Globulin, Blood 4.1 g/dL (2.2-4.0); Potassium, Blood 5.6 mmol/L (3.5-5.5); Total Protein, Blood 7.1 g/dL (6.4-8.2)
[2021-02-27 07:41] LABS: Source, Urine Catheter
[2021-02-27 07:42] LABS: Bilirubin, Urine Neg (Neg); Blood, Urine 2+ (Neg); Glucose Qualitative, Urine 4+ (Neg); Ketones, Urine 2+ (Neg); Leukocyte Esterase, Urine Neg (Neg); Nitrite, Urine Neg (Neg); Protein, Urine 1+ (Neg); Specific Gravity, Urine 1.015 (1.003-1.022); Urobilinogen, Urine NORM (Normal)
[2021-02-27 07:51] LABS: Appearance, Urine Hazy (Clear); Bacteria Rare /hpf; Color, Urine Yellow (P-Yellow); Squamous Epithelial Cells Few /hpf (Few); White Blood Cells, Urine Not Seen /hpf (0-5); Yeast/Fungi Urine Few /hpf
--- NOTE | 2021-02-27 15:14 | NUR ---
PT ARRIVED IN THE UNIT VIA STRETCHER FROM [facility] RECEIVED REPORT FROM SHERIDAN HAWKINS. PT WAS TRANSFERRED TO PCU BED VIA CEILING LIFT. PT IS LETHARGIC SOMEWHAT CONFUSED, CAN ONLY ANSWER YES OR NO FALLS BACK TO SLEEP QUICK. VITALS BP SYSTOLIC 140'S, PT ON BIPAP 14/8 50% FIO2 PER RT SETTINGS SATS 90-92%, SOD/ WORSENS WITH EXERTION/MOVEMENT, AFEBRILE. PT HAS CATHETER DRAINING DARK YELLOW URINE VIA GRAVITY. LR RUNNING AT 75MLS/HR. PT NOW RESTING, REMAINS NPO. CALL LIGHTS IN REACH WILL MONITOR
--- NOTE | 2021-02-28 05:01 | NUR ---
SHIFT SUMMARY PT REMAINS EXTREMELY LETHARGIC WITH MOANING RESPONSES BUT NOTHING REALLY SPECIFIC. P NOT FOLLOWING COMMANDS BUT OPENS EYES AND SOMEWHAT TRACKS WITH EYES. PT STARTED SHIFT WITH HR 90'S BUT SLOWLY INCREASED UP T 130'S. DR VERGARA CALLED, UPDATED ON THE FACT THAT PT HAS NOT BEEN RECEIVING HER NORMAL PO METOPROL BID DOSE DUE TO LETHARGY/ASPIRATION RISK. IV LABETOLOL ORDERED, SEE EMAR. PROVIDER ALSO UPDATED ON CBG STATUS, SEE EMAR FOR EXTRA INSULIN DOSING. PT STARTED SHIFT ON BIPAP 14/8 50%, NOW AT SAME PRESSURE SETTINGS BUT 75% WITH SPO2 OF 90%. EXTENSIVE ORAL CARE PROVIDED TO PT. CORONEL PATENT AND DRAINING. PT BEING TURNED BY STAFF VIA OVERHEAD LIFT. LR INFUSING PER EMAR. BED ALARM ON. IN ISOLATION. WCTM.
[2021-02-28 05:14] LABS: BASOPHILS PERCENT AUTO 0 % (0-2); EOSINOPHILS PERCENT AUTO 0 % (0-6); Hematocrit 37.6 % (33.0-51.0); IMMATURE GRAN ABSOLUTE AUTO 0.07 K/mm3 (0.00-0.10); IMMATURE GRAN PERCENT AUTO 1 % (0-1); LYMPHOCYTES ABSOLUTE AUTO 0.49 K/mm3 (0.84-5.20); LYMPHOCYTES PERCENT AUTO 7 % (21-46); MONOCYTES ABSOLUTE AUTO 0.44 K/mm3 (0.16-1.47); MONOCYTES PERCENT AUTO 7 % (4-13); Mean Corpuscular HGB 26.1 pg (26.0-34.0); Mean Corpuscular HGB Conc 29.3 g/dL (31.5-36.5); Mean Corpuscular Volume 89 fL (80-100); Mean Platelet Volume 11.2 fL (9.1-12.4); NEUTROPHILS ABSOLUTE AUTO 5.82 K/mm3 (1.96-9.15); NEUTROPHILS PERCENT AUTO 85 % (41-73); Platelet Count 297 K/mm3 (150-400); RDW Coefficient Variation 16.6 % (11.7-14.2); RDW Standard Deviation 54.2 fL (35.1-46.3); Red Blood Cell Count 4.21 M/mm3 (3.80-5.20); White Blood Cell Count 6.82 K/mm3 (4.00-11.30)
[2021-02-28 05:38] LABS: Albumin, Blood 2.9 g/dL (3.4-5.0); Albumin/Globulin Ratio 0.7 (0.8-1.8); Bilirubin, Total 0.4 mg/dL (0.1-1.0); Bun/Creatinine Ratio 41.5 (12.0-20.0); Calcium, Blood 9.7 mg/dL (8.5-10.1); Creatinine, Blood 2.34 mg/dL (0.40-1.00); Globulin, Blood 4.4 g/dL (2.2-4.0); Total Protein, Blood 7.3 g/dL (6.4-8.2)
[2021-02-28 05:40] LABS: Potassium, Blood 6.1 mmol/L (3.5-5.5)
--- NOTE | 2021-02-28 09:52 | NUR ---
PT'S HR WITH NO EFFECT FROM PREVIOUS DOSE, 20MG LABATELOL ADMINISTERED AT THIS TIME
[2021-02-28 11:33] LABS: Albumin, Blood 2.7 g/dL (3.4-5.0); Anion Gap 6 mmol/L (6-16); Blood Urea Nitrogen 110 mg/dL (8-24); Bun/Creatinine Ratio 40.1 (12.0-20.0); CO2, Blood 26 mmol/L (21-32); Calcium, Blood 9.8 mg/dL (8.5-10.1); Chloride, Blood 116 mmol/L (98-108); Creatinine, Blood 2.74 mg/dL (0.40-1.00); Glomerular Filtration Rate 18 (60-); Glucose, Blood 512 mg/dL (70-99); Phosphorus, Blood 3.5 mg/dL (2.5-4.9); Sodium, Blood 148 mmol/L (136-145)
[2021-02-28 11:35] LABS: Potassium, Blood 6.6 mmol/L (3.5-5.5)
--- NOTE | 2021-02-28 13:23 | NUR ---
PT CONTINUES WITH LITTLE TO NO RESPONSE TO STIMULI. PT BIPAP SETTINGS ARE INCREASED TO MAINTAIN SPO2 GREATER THAN 88% WHICH IS TOLERATED WELL. PT CONTINUES WITH TACHYCARDIA THAT IS NONRESPONSIVE TO MEDICATIONS, SOFT BP, HYPERKALEMIA WITH K OF 6.6 WHICH WAS TREATED WITH 25 TOTAL UNITS OF INSULIN TO TREAT BOTH THE HYPERKALEMIA AND GLUCOSE GREATER THAN 500, CALCIUM GLUCONATE INFUSING ON THE TIME OF TRANSFER. PERRLA, WITH PUPILS OF 4 THAT ARE BRISK RESPONSE TO LIGHT. PT TRANSFERED TO ICU FOR POSSIBLE INTUBATION RELATED TO DECREASED RESPONSIVENESS AND NEED FOR HIGHER LEVEL OF CARE. REPORT TO FARHAD HAWKINS
[2021-02-28 13:24] LABS: Glucose, Blood 568 mg/dL (70-99)
[2021-02-28 14:03] LABS: PCO2 Arterial 63 mmHg (35-45); PO2 Arterial 62 mmHg (80-100); pH Blood Arterial 7.25 (7.35-7.45)
[2021-02-28 15:45] LABS: Glucose, Blood 511 mg/dL (70-99)
--- NOTE | 2021-02-28 16:09 | NUR ---
PT ARRIVAL ON UNIT/UPDATE... PT WAS TRANSFERED TO THE ICU AT 1323, PT WAS ON BIPAP AND UNRESPONSIVE, PT WAS PULLED OVER TO THE ICU BED WITH 4 STAFF, PT WAS PREPED FOR INTUBATION AND INTUBATED BY DR. DALLAS AT 1330, PT WAS INTUBATED WITH AN 8.0 23 AT THE TEETH, PT'S VENT SETTINGS AC/VC: 24/450/20/100%. PT WAS INTUBATED WITH 50 OF [place]RIST[place] ONLY. PT BECAME HYPOTENSIVE WITH A RAPID HEART RATE OF SINUS W/BBB IN THE 120'S-130'S. AT 1336 PT WAS GIVEN A 200MCG IV PUSH OF ADELE, AT 1338 THE PT WAS GIVEN ANOTHER 200MCG IV PUSH, AT 1339 THE PT WAS GIVEN AN IV PUSH OF 10MG OF EPHEDREN AT THAT TIME LEVOPHED WAS STARTED VIA PERIPHREAL IV IN THE RIGHT UPPER CHEST. AN OG WAS PLACE AND SET TO LOW INT SUCTION, WHEN SUCTION WAS TURNED ON THERE WAS ABOUT 150MLS OF MAROON/BROWN COFFEE GROUND GASTRIC CONTENT, PROVIDER AWARE SAMPLE SENT TO THE LAB. A PICC LINE WAS PLACED AND THE LEVOPHED WAS MOVED TO THE PICC LINE, THE PT'S LEVOPHED WAS STARTED AT 8MCG AND INCREASED TO 10MCG TO KEEP MAPS >60. THE PT CONTINUES TO BE UNRESPONSIVE AND IS NOT ON ANY SEDATION AT THIS TIME. PT'S TEMP CORONEL WAS PLUGGED IN AND THE TEMP STATED WAS 106.3, TEMPORAL TEMP WAS 102.3, ICE BAGS WERE PLACED ON THE PT'S GROIN, AND WAS GIVEN PT TYLENOL. SPUTUM SAMPLE WAS SENT TO THE LAB. WILL CONTINUE TO MONITOR.
[2021-02-28 17:17] LABS: Base Excess Venous -0.6 mmol/L; Bicarbonate Venous 23.2 mmol/L (24.0-30.0); PO2 Venous 53.2 mmHg (38-42); pH Blood Venous 7.29 (7.34-7.37)
[2021-02-28 17:48] LABS: BASOPHILS PERCENT AUTO 0 % (0-2); EOSINOPHILS PERCENT AUTO 0 % (0-6); Hematocrit 35.7 % (33.0-51.0); Hemoglobin 10.3 g/dL (11.5-16.0); IMMATURE GRAN PERCENT AUTO 1 % (0-1); LYMPHOCYTES ABSOLUTE AUTO 0.52 K/mm3 (0.84-5.20); LYMPHOCYTES PERCENT AUTO 6 % (21-46); MONOCYTES ABSOLUTE AUTO 0.82 K/mm3 (0.16-1.47); MONOCYTES PERCENT AUTO 10 % (4-13); Mean Corpuscular HGB 26.5 pg (26.0-34.0); Mean Corpuscular HGB Conc 28.9 g/dL (31.5-36.5); Mean Corpuscular Volume 92 fL (80-100); Mean Platelet Volume 11.3 fL (9.1-12.4); NEUTROPHILS ABSOLUTE AUTO 6.97 K/mm3 (1.96-9.15); NEUTROPHILS PERCENT AUTO 83 % (41-73); NRBC ABSOLUTE 0.02 K/mm3 (0.00-0.02); NRBC Auto 0.2 /100 WBC (0.0-0.2); Platelet Count 346 K/mm3 (150-400); RDW Coefficient Variation 16.9 % (11.7-14.2); RDW Standard Deviation 57.3 fL (35.1-46.3); Red Blood Cell Count 3.88 M/mm3 (3.80-5.20); White Blood Cell Count 8.41 K/mm3 (4.00-11.30)
--- NOTE | 2021-02-28 18:45 | NUR ---
SHIFT SUMMARY.... PT CONTINUES TO BE ON LEVOPHED AT 10MCG KEEPING THE MAP >60. PRECEDEX GTT WAS STARTED TO SEE IF IT WOULD IMPROVE THE PT'S HR, PRECEDEX WAS STARTED AT 0.4MCG BUT THE PT'S HR CONTINUES TO BE ST W/BBB IN THE 130'S DR. CRANE IS AWARE OF THE HEART RATE AND WANTS TO MONITOR IT AT THIS TIME. THIS RN SENT A SAMPLE OF THE PT'S GASTRIC FLUID TO THE LAB THIS CAME BACK POSITIVE FOR BLOOD, THE OG TUBE IS SET TO LOW INT SUCTION FOR NOW, PER DR. CRANE MONITOR THE H&H AND THE GASTRIC OUTPUT AND CALL IF THE H&H STARTS TO DROP. PT'S TEMP CORONEL HAS BEEN READING 105.8-106.3 TEMPORAL READING WAS 102.3 AND 100.2, DR. CRANE AWARE OF THIS WELL, CONTINUE TO TREAT THE PT'S TEMPORAL TEMPS. PT'S CORONEL IS PATENT AND DRAINING TO GRAVITY. PT HAS NOT HAD ANY TRACHIAL SECRETIONS SINCE INTUBATION FOR THIS RN. WILL CONTINUE TO MONITOR UNTIL REPORT IS GIVEN TO ONCOMING RN.
[2021-02-28 19:23] LABS: Calcium, Blood 9.9 mg/dL (8.5-10.1); Creatinine, Blood 4.14 mg/dL (0.40-1.00); Potassium, Blood 6.4 mmol/L (3.5-5.5)
[2021-03-01 00:54] LABS: Bun/Creatinine Ratio 25.1 (12.0-20.0); Calcium, Blood 9.8 mg/dL (8.5-10.1); Creatinine, Blood 4.99 mg/dL (0.40-1.00); Potassium, Blood 5.9 mmol/L (3.5-5.5)
[2021-03-01 02:21] LABS: Base Excess Venous -3.4 mmol/L; Bicarbonate Venous 20.7 mmol/L (24.0-30.0); PCO2 Venous 56.5 mmHg (38-42); PO2 Venous 39.8 mmHg (38-42); pH Blood Venous 7.24 (7.34-7.37)
[2021-03-01 02:38] LABS: Magnesium, Blood 2.8 mg/dL (1.6-2.4); Phosphorus, Blood 2.4 mg/dL (2.5-4.9)
[2021-03-01 04:57] LABS: PCO2 Arterial 44.6 mmHg (35-45); PO2 Arterial 70.1 mmHg (80-100)
[2021-03-01 04:58] LABS: pH Blood Arterial 7.29 (7.35-7.45)
[2021-03-01 05:04] LABS: BASOPHILS PERCENT AUTO 0 % (0-2); EOSINOPHILS PERCENT AUTO 0 % (0-6); Hematocrit 36.4 % (33.0-51.0); Hemoglobin 10.3 g/dL (11.5-16.0); IMMATURE GRAN ABSOLUTE AUTO 0.08 K/mm3 (0.00-0.10); IMMATURE GRAN PERCENT AUTO 1 % (0-1); LYMPHOCYTES ABSOLUTE AUTO 0.65 K/mm3 (0.84-5.20); LYMPHOCYTES PERCENT AUTO 9 % (21-46); MONOCYTES ABSOLUTE AUTO 0.55 K/mm3 (0.16-1.47); MONOCYTES PERCENT AUTO 8 % (4-13); Mean Corpuscular HGB 26.2 pg (26.0-34.0); Mean Corpuscular HGB Conc 28.3 g/dL (31.5-36.5); Mean Corpuscular Volume 93 fL (80-100); Mean Platelet Volume 11.5 fL (9.1-12.4); NEUTROPHILS ABSOLUTE AUTO 5.93 K/mm3 (1.96-9.15); NEUTROPHILS PERCENT AUTO 82 % (41-73); Platelet Count 305 K/mm3 (150-400); RDW Coefficient Variation 16.9 % (11.7-14.2); RDW Standard Deviation 58.5 fL (35.1-46.3); Red Blood Cell Count 3.93 M/mm3 (3.80-5.20); White Blood Cell Count 7.21 K/mm3 (4.00-11.30)
[2021-03-01 05:24] LABS: Bun/Creatinine Ratio 21.6 (12.0-20.0); Calcium, Blood 9.7 mg/dL (8.5-10.1); Creatinine, Blood 5.52 mg/dL (0.40-1.00); Potassium, Blood 5.8 mmol/L (3.5-5.5)
[2021-03-01 05:43] LABS: Glucose, Blood 562 mg/dL (70-99)
--- NOTE | 2021-03-01 06:49 | NUR ---
PATIENT HAS TOLERATED VENTILATOR SETTINGS OVERNIGHT WITH NO DESAT ISSUES. VENT CHANGES MADE EARLY THIS MORNIG DUE TO A CRITICAL PH 7.24. RATE CHANGED FROM 24 TO 28 AND PEEP DOWN FROM 15 TO 12 PER RT AND PROVIDER ORDERS. TEMP HAS GRADUALLY CLIMBED OVERNIGHT WITH A TMAX OF 107.6. TYLENOL GIVEN X3, GOWN REMOVED, FAN IN USE, MULTIPLE ICE PACKS, AND A COLD BATH AND NOTHING HAS HELPED. SPOKE WITH MORTEZA-CATERINA. SHE SUGGESTED WE TRY TURNING OFF THE PRECEDEX TO SEE IF SHE WAS HAVING A POSSIBLE REACTION. CT HEAD DONE AROUND 2229. PATIENT COUGHS OVER VENT AT TIMES BUT DOES NOT WAKE UP TO FOLLOW COMMANDS. SHE HAS BEEN ST THE ENTIRE SHIFT AND LEVO AND VASO INFUSING TO MAINTAIN MAP>60. CURRENTLY ON NO SEDATION. MINIMAL URINE OUTPUT OF 150 FOR THE ENTIRE SHIFT. MD VERGARA MADE AWARE. BLOOD GLUCOSE HAS ALSO BEEN >500 EVEN DESPITE STARTING AN INSULIN INFUSION. IT HAS BEEN >500 FOR SEVERAL CHECKS AND SHE IS CURRENTLY GETTING 8UNITS/HR.
[2021-03-01 09:19] LABS: Bun/Creatinine Ratio 21.1 (12.0-20.0); Calcium, Blood 9.8 mg/dL (8.5-10.1); Creatinine, Blood 6.17 mg/dL (0.40-1.00); Potassium, Blood 5.8 mmol/L (3.5-5.5)
--- NOTE | 2021-03-01 09:48 | NUR ---
Case Conference Note Reviewed chart, discussed case with hvac service tech Roby, and Dr Cruz. Reviewed plan of care. Dr Cruz will call Pt's grandson Clayton, and Pt's mother. Palliative Care will remain available.
[2021-03-01 12:22] LABS: Base Excess Venous -6.8 mmol/L; Bicarbonate Venous 17.7 mmol/L (24.0-30.0); PO2 Venous 29.1 mmHg (38-42)
[2021-03-01 12:23] LABS: pH Blood Venous 7.14 (7.34-7.37)
[2021-03-01 12:57] LABS: Anion Gap 9 mmol/L (6-16); Blood Urea Nitrogen 130 mg/dL (8-24); Bun/Creatinine Ratio 20.1 (12.0-20.0); CO2, Blood 22 mmol/L (21-32); Calcium, Blood 9.3 mg/dL (8.5-10.1); Chloride, Blood 118 mmol/L (98-108); Creatinine, Blood 6.48 mg/dL (0.40-1.00); Glomerular Filtration Rate 7 (60-); Glucose, Blood 426 mg/dL (70-99); Sodium, Blood 149 mmol/L (136-145); Vancomycin, Random 26.7 ug/mL
--- NOTE | 2021-03-01 15:43 | NUR ---
Joint visit with Dr Cruz, Dr Carlos, this RN, and Pt's mother Lucia in ICU waiting room. Dr Cruz provides update, prognosis, and discusses plan of care. Dr Cruz answers questions with Luica reporting understanding. Lucia is requesting to see Pt to say her good byes. She reports no plan to come back to visit unless Pt improves. Escorted Lucia to Pt's room with helper coordinator Ross assists Lucia with donning PPE. This RN remained at bedside and offered support during Lucia's visit. Lucia requests to take Pt's purse home with her. Lucia expresses appreciation and reports no other concerns. Palliative Care will remain available.
[2021-03-01 17:06] LABS: Base Excess Venous -8.7 mmol/L; Bicarbonate Venous 16.7 mmol/L (24.0-30.0); PCO2 Venous 57.5 mmHg (38-42); PO2 Venous 33.6 mmHg (38-42); pH Blood Venous 7.15 (7.34-7.37)
[2021-03-01 17:48] LABS: Bun/Creatinine Ratio 18.6 (12.0-20.0); Calcium, Blood 9.2 mg/dL (8.5-10.1); Creatinine, Blood 6.83 mg/dL (0.40-1.00); Potassium, Blood 5.1 mmol/L (3.5-5.5)
--- NOTE | 2021-03-01 18:27 | NUR ---
SUMMARY PT INTUBATED, NO SEDATION. UNRESPONSIVE. PUPILS REACT TO LIGHT BUT THAT IS IT. PT IS ON LEVOPHED AT 30MCG/MIN, NEOSYNEPHERINE AT 200MCG/MIN, AND VASOPRESSIN 0.04 UNITS/MIN. WILL GET A BP READING ONCE IN A WHILE WITH MAP [address] MELÉNDEZ SPOKE WITH PT'S MOM TODAY AND SHE DOES NOT WANT TO ESCALATE CARE FROM HERE. WE ARE TO KEEP GOING WITH THE MEDS ALREADY ON BOARD AND DECLINING DIALYSIS AT THIS POINT. PT WAS MADE DNR WELL. PT HAS BEEN ON INSULIN GTT. NOW AT 14 UNITS/HR. GLUCOSE IS IMPROVING SLOWLY. TEMP HAS BEEN SLOWLY COMING DOWN TODAY. PT HAS HAD COOLING BLANKET ON AND ALTERNATING ICE PACKS WELL TYLENOL. PEEP WAS INCREASED TO 14 TODAY AND FIO2 TO 100%, NO OTHER VENT CHANGES.
[2021-03-02 04:22] LABS: Hematocrit 34.8 % (33.0-51.0); Hemoglobin 9.7 g/dL (11.5-16.0); Mean Corpuscular HGB 26.4 pg (26.0-34.0); Mean Corpuscular HGB Conc 27.9 g/dL (31.5-36.5); Mean Corpuscular Volume 95 fL (80-100); Mean Platelet Volume 11.3 fL (9.1-12.4); NRBC ABSOLUTE 0.09 K/mm3 (0.00-0.02); NRBC Auto 0.3 /100 WBC (0.0-0.2); Platelet Count 274 K/mm3 (150-400); RDW Coefficient Variation 17.2 % (11.7-14.2); RDW Standard Deviation 60.3 fL (35.1-46.3); Red Blood Cell Count 3.68 M/mm3 (3.80-5.20); White Blood Cell Count 25.95 K/mm3 (4.00-11.30)
[2021-03-02 05:10] LABS: Anion Gap 13 mmol/L (6-16); Blood Urea Nitrogen 108 mg/dL (8-24); CO2, Blood 20 mmol/L (21-32); Calcium, Blood 8.3 mg/dL (8.5-10.1); Chloride, Blood 114 mmol/L (98-108); Creatinine, Blood 7.18 mg/dL (0.40-1.00); Glomerular Filtration Rate 6 (60-); Glucose, Blood 238 mg/dL (70-99); Phosphorus, Blood 3.2 mg/dL (2.5-4.9); Potassium, Blood 4.4 mmol/L (3.5-5.5); Sodium, Blood 147 mmol/L (136-145); Vancomycin, Random 22.1 ug/mL
[2021-03-02 05:16] LABS: CPK Creatine Kinase 13154 U/L (26-193)
[2021-03-02 05:20] LABS: PCO2 Arterial 57.2 mmHg (35-45); pH Blood Arterial 7.13 (7.35-7.45)
[2021-03-02 06:20] LABS: BAND PERCENT MAN 33 % (0-8); BASOPHILS PERCENT MAN 0 % (0-2); EOSINOPHILS PERCENT MAN 0 % (0-6); LYMPHOCYTES ABSOLUTE MAN 0.77 K/mm3 (0.84-5.20); LYMPHOCYTES PERCENT MAN 3 % (21-46); METAMYELOCYTE ABSOLUTE MAN 0.51 K/mm3 (0.00-0.00); METAMYELOCYTE PERCENT MAN 2 % (0-0); MONOCYTES PERCENT MAN 0 % (4-13); MYELOCYTE ABSOLUTE MAN 0.25 K/mm3 (0.00-0.00); MYELOCYTE PERCENT MAN 1 % (0-0); NEUTROPHILS ABSOLUTE MAN 24.39 K/mm3 (1.96-9.15); SEG NEUTROPHILS PERCENT MAN 61 % (41-73); TOTAL CELLS COUNTED 100
--- NOTE | 2021-03-02 07:11 | NUR ---
END OF SHIFT SUMMARY: PATIENT HAS REMAINED ON VENT WITH NO SEDATION OVERNIGHT AND NO ACUTE CHANGES. DOES NOT WAKE UP AND FOLLOW COMAMNDS OR DO ANYTHING NEUROLOGICALLY OTHER THAN COUGH OVER THE VENT OCCASIONALLY. CRITICAL PH 7.13 THIS MORNING EXPECTED. BP SUPPORT MEDS REMAIN MAXED WITH NO PLAN FOR ESCALATION OF CARE. TEMPS REMAIN INCREDIBLY HIGH AND COOLING BLANKET REMAIN ON. BLOOD SUGARS SLOWLY IMPROVING BUT STILL ON 14-17 UNITS/HR.
--- NOTE | 2021-03-02 08:30 | NUR ---
DR. MELÉNDEZ IN TO SEE PT. AWARE OF SPO2 80-84%.
--- NOTE | 2021-03-02 13:05 | NUR ---
DR. MELÉNDEZ AWARE OF SPO2 AND PT IS TOO UNSTABLE TO REPOSITION AT THIS TIME.
--- NOTE | 2021-03-02 17:45 | NUR ---
SUMMARY PT WAS INTUBATED WITHOUT SEDATION. UNRESPONSIVE. UNABLE TO GET SPO2 GREATER THAN 81% SINCE EARLY THIS AM. PT BECAME TOO UNSTABLE TO REPOSITION. DR. MELÉNDEZ SPOKE WITH PT'S MOM WHO ULTIMATELY DECIDED TO MAKE PT COMFORT CARE. PT WAS EXTUBATED AT 1723 AFTER MORPHINE AND ATIVAN GIVEN. THEN PRESSORS WERE TURNED OFF. PT PASSED PEACEFULLY AT 1730 WITH RN AND RT AT BEDSIDE. MOM WAS CALLED WITH TIME OF AND CHOSE MORTUARY. DR. MELÉNDEZ AWARE OF PASSING.
== END 2021-03-02 17:30 | DRG 208 ==
LOC: ER 17:05 → ERHOLD 19:41 → ICUW 19:41 → PCU 02-27 13:30 → ICUW 02-28 13:20
PROVIDERS: Emergency Medicine; Family Medicine; Hospitalist; Internal Medicine; Internal Medicine Critical Care Medicine; Student in an Organized Health Care Education/Training Program; ADMIT Internal Medicine
PROC: 3E0333Z Introduction of Anti-inflammatory into Peripheral Vein, Percutaneous Approach (ICD-10-PCS; principal; 2021-02-26)
PROC: 5A09457 Assistance with Respiratory Ventilation, 24-96 Consecutive Hours, Continuous Positive Airway Pressure (ICD-10-PCS; 2021-02-26)
PROC: 8E0ZXY6 Isolation (ICD-10-PCS; 2021-02-26)
PROC: 5A1945Z Respiratory Ventilation, 24-96 Consecutive Hours (ICD-10-PCS; 2021-02-28)
PROC: 0BH18EZ Insertion of Endotracheal Airway into Trachea, Via Natural or Artificial Opening Endoscopic (ICD-10-PCS; 2021-02-28)
PROC: 3E043XZ Introduction of Vasopressor into Central Vein, Percutaneous Approach (ICD-10-PCS; 2021-02-28)
PROC: 02HV33Z Insertion of Infusion Device into Superior Vena Cava, Percutaneous Approach (ICD-10-PCS; 2021-02-28)
DX: U07.1 COVID-19 (principal); J12.82 Pneumonia due to coronavirus disease 2019; R65.21 Severe sepsis with septic shock; J96.21 Acute and chronic respiratory failure with hypoxia; A41.9 Sepsis, unspecified organism; N17.0 Acute kidney failure with tubular necrosis; G93.1 Anoxic brain damage, not elsewhere classified; N18.4 Chronic kidney disease, stage 4 (severe); I42.2 Other hypertrophic cardiomyopathy; Z66 Do not resuscitate; Z51.5 Encounter for palliative care; E78.5 Hyperlipidemia, unspecified; I12.9 Hypertensive chronic kidney disease with stage 1 through stage 4 chronic kidney disease, or unspecified chronic kidney disease; E11.22 Type 2 diabetes mellitus with diabetic chronic kidney disease; E87.5 Hyperkalemia; Z88.5 Allergy status to narcotic agent; Z88.8 Allergy status to other drugs, medicaments and biological substances; Z88.6 Allergy status to analgesic agent; K21.9 Gastro-esophageal reflux disease without esophagitis; E11.40 Type 2 diabetes mellitus with diabetic neuropathy, unspecified; Z79.899 Other long term (current) drug therapy; Z79.4 Long term (current) use of insulin; Z98.49 Cataract extraction status, unspecified eye; J43.9 Emphysema, unspecified; Z90.49 Acquired absence of other specified parts of digestive tract; Z95.1 Presence of aortocoronary bypass graft; Z98.890 Other specified postprocedural states; E11.65 Type 2 diabetes mellitus with hyperglycemia; E03.9 Hypothyroidism, unspecified; Z87.891 Personal history of nicotine dependence; Z90.710 Acquired absence of both cervix and uterus; G47.30 Sleep apnea, unspecified; E66.01 Morbid (severe) obesity due to excess calories
CPT/HCPCS: 31500; 31720; 36415; 36569; 36600; 51702; 70450; 71045; 76770; 78580; 80048; 80053; 80069; 80202; 81001; 82271; 82550; 82803; 82947; 83605; 83735; 83880; 84100; 84145; 84443; 85025; 87040; 87070; 87106; 87205; 93005; 93010; 93306; 94002; 94003; 94640; 94660; 94762; 96365-59; 96372-59; 96375; 96375-59; 99285-25; A9270; A9540; C1751; C9113; J0456; J0610; J0692; J0696; J1100; J1644; J1650; J1720; J1815; J1940; J2060; J2270; J2370; J2704; J2930; J3010; J3370; J7030; J7040; J7050; J7060; J7070; J7120